=== PATIENT | male | born 1945 | race Caucasian/White ===

== ENCOUNTER 2020-12-16 15:05 | Inpatient (IN) ==
[2020-12-16] MEDS ORDERED: 0.9 % Sodium Chloride 1,000 ML IVC ONE ×2 (15:28→16:59)
[2020-12-16 16:01] LABS: BUN/Creatinine Ratio 9 (6-26); Blood Urea Nitrogen 22 mg/dL (8-23); Calcium 7.9 mg/dL (8.6-10.3); Carbon Dioxide 30 mEq/L (23-29); Chloride 79 mEq/L (98-107); Ethanol < 10 mg/dL (Less than 10); Glucose 96 mg/dL (70-105); Osmolality,Calculated 257 (280-300); Potassium 2.7 mEq/L (3.5-5.1); Sodium 122 mEq/L (136-145); eGFR For African Americans 33 (> 60); eGFR For Non-African Americans 27 (> 60)
[2020-12-16] MEDS ORDERED: Potassium Chloride Elixir 20 MEQ/15 ML UDC PO ONE (16:04)
[2020-12-16 16:06] LABS: Troponin I < 0.03 ng/mL (< 0.04)
[2020-12-16 16:24] LABS: Bilirubin,Urine Small (Negative); Blood,Urine Small (Negative); Clarity,Urine Clear (Clear); Glucose,Urine (UA) Normal (Normal); Ketones,Urine Trace mg/dL (Negative); Leukocyte Esterase,Urine Negative (Negative); Nitrite,Urine Negative (Negative); Protein,Urine Trace mg/dL (Neg-Trace); Urobilinogen,Urine Normal (Normal)
[2020-12-16 16:29] LABS: Color,Urine Dark Yellow (Yellow)
[2020-12-16 16:31] LABS: Renal Epithelial Cells,Urine Few per hpf (None-Few); Squamous Epithelial Cell,Urine None Seen per hpf (None-Few); WBC,Urine 0-3 per hpf (0-3)
[2020-12-16 16:32] LABS: Amorphous Sediment,Urine Many per hpf (None-Few); Hyaline Casts,Urine Few per lpf (None Seen); Mucus,Urine Few per lpf (None-Few)
[2020-12-16 16:35] LABS: Basophils % 0.9 %; Eosinophils # 0.1 K/mcL (0.0-0.6); Eosinophils % 2.9 %; Hematocrit 29.7 % (37.5-50.1); Hemoglobin 11.2 g/dL (12.9-16.9); Immature Granulocytes % 1.3 % (0-4); Lymphocytes # 0.8 K/mcL (0.6-4.6); Lymphocytes % 18.7 %; Mean Corpuscular HGB Conc 37.7 g/dL (31.6-35.5); Mean Corpuscular Hemoglobin 36.6 pg (28.0-33.3); Mean Corpuscular Volume 97.1 fL (83.0-100.0); Mean Platelet Volume 10.4 fL (9.4-12.4); Monocytes # 0.7 K/mcL (0.0-1.3); Monocytes % 16.3 %; Neutrophils # 2.7 K/mcL (1.6-8.9); Platelet Count 142 K/mcL (140-400); Red Blood Count 3.06 M/mcL (4.19-5.50); Red Cell Distribution Width 12.5 % (11.5-14.5); Segmented Neutrophils % 59.9 %; White Blood Count 4.5 K/mcL (4.3-11.1)
[2020-12-16] MEDS ORDERED: MOM Conc 10 ML UD.LIQ PO PRN (17:56)
[2020-12-16] MEDS ORDERED: Ondansetron 4 MG/2 ML VIAL IVP PRN (17:56)
[2020-12-16] MEDS ORDERED: Mag Hydrox/Al Hydrox/Simeth 30 ML UDC PO PRN (17:56)
[2020-12-16] MEDS ORDERED: Acetaminophen 325 MG TABLET PO PRN (17:56)
[2020-12-16] MEDS ORDERED: Melatonin 3 MG TABLET PO PRN (17:56)
[2020-12-16] MEDS ORDERED: Naloxone 0.4 MG/ML INJ IVP PRN (17:56)
[2020-12-16] MEDS ORDERED: *HR* LORazepam 2 MG/ML VIAL IVP PRN (18:02)
[2020-12-16] MEDS ORDERED: 0.9 % Sodium Chloride 250 ML IVC ONE (19:01)
[2020-12-16] MEDS: 0.9 % Sodium Chloride 1,000 ML IVC SCH (19:45)
[2020-12-16 21:21] LABS: Calcium 6.9 mg/dL (8.6-10.3); Potassium 3.2 mEq/L (3.5-5.1)
[2020-12-17] MEDS: 0.9 % Sodium Chloride 1,000 ML IVC SCH ×2 (05:31→15:49)
[2020-12-17 07:31] LABS: Basophils % 0.2 %; Eosinophils % 0.9 %; Hematocrit 26.8 % (37.5-50.1); Hemoglobin 9.7 g/dL (12.9-16.9); Immature Granulocytes % 0.9 % (0-4); Lymphocytes # 0.4 K/mcL (0.6-4.6); Lymphocytes % 9.9 %; Mean Corpuscular HGB Conc 36.2 g/dL (31.6-35.5); Mean Corpuscular Hemoglobin 35.9 pg (28.0-33.3); Mean Corpuscular Volume 99.3 fL (83.0-100.0); Mean Platelet Volume 10.8 fL (9.4-12.4); Monocytes # 0.5 K/mcL (0.0-1.3); Monocytes % 12.7 %; Neutrophils # 3.2 K/mcL (1.6-8.9); Platelet Count 114 K/mcL (140-400); Red Cell Distribution Width 12.7 % (11.5-14.5); Segmented Neutrophils % 75.4 %; White Blood Count 4.2 K/mcL (4.3-11.1)
[2020-12-17 07:55] LABS: Calcium 6.8 mg/dL (8.6-10.3); Potassium 3.4 mEq/L (3.5-5.1)
[2020-12-17 09:00] LABS: Platelet Estimate Slight Decrease (Normal)
[2020-12-17] MEDS: Thiamine (B-1) 100 MG TABLET PO SCH (09:30)
[2020-12-17] MEDS: Folic Acid 1 MG TABLET PO SCH (09:30)
[2020-12-17] MEDS: Vitamin B Complex/Vit C/Vit E 1 EACH TABLET PO SCH (09:30)
[2020-12-17] MEDS: Aspirin 81 MG TAB.CHEW PO SCH (09:30)
[2020-12-17 15:41] LABS: Calcium 6.7 mg/dL (8.6-10.3); Potassium 3.4 mEq/L (3.5-5.1)
[2020-12-18] MEDS: 0.9 % Sodium Chloride 1,000 ML IVC SCH ×3 (00:07→19:36)
[2020-12-18 07:39] LABS: Basophils % 0.4 %; Eosinophils # 0.1 K/mcL (0.0-0.6); Eosinophils % 3.4 %; Hematocrit 24.6 % (37.5-50.1); Hemoglobin 8.8 g/dL (12.9-16.9); Immature Granulocytes % 0.4 % (0-4); Lymphocytes # 0.4 K/mcL (0.6-4.6); Lymphocytes % 17.7 %; Mean Corpuscular HGB Conc 35.8 g/dL (31.6-35.5); Mean Corpuscular Hemoglobin 36.2 pg (28.0-33.3); Mean Corpuscular Volume 101.2 fL (83.0-100.0); Mean Platelet Volume 10.6 fL (9.4-12.4); Monocytes # 0.4 K/mcL (0.0-1.3); Monocytes % 15.6 %; Neutrophils # 1.5 K/mcL (1.6-8.9); Red Blood Count 2.43 M/mcL (4.19-5.50); Red Cell Distribution Width 13.1 % (11.5-14.5); Segmented Neutrophils % 62.5 %; White Blood Count 2.4 K/mcL (4.3-11.1)
[2020-12-18 07:42] LABS: Platelet Count 83 K/mcL (140-400)
[2020-12-18 07:51] LABS: Calcium 6.8 mg/dL (8.6-10.3); Potassium 3.6 mEq/L (3.5-5.1)
[2020-12-18] MEDS: Folic Acid 1 MG TABLET PO SCH (09:08)
[2020-12-18] MEDS: Vitamin B Complex/Vit C/Vit E 1 EACH TABLET PO SCH (09:08)
[2020-12-18] MEDS: Thiamine (B-1) 100 MG TABLET PO SCH (09:08)
[2020-12-18] MEDS: Aspirin 81 MG TAB.CHEW PO SCH (09:08)
[2020-12-18 14:44] LABS: % Iron Saturation 46 % (20-55); Iron 81 mcg/dL (65-175); Transferrin 125 mg/dL (203-362)
[2020-12-18 15:09] LABS: Folate 15.7 ng/mL (3.0-16.0)
[2020-12-19] MEDS: 0.9 % Sodium Chloride 1,000 ML IVC SCH (06:24)
[2020-12-19] MEDS: *HR* Enoxaparin 40 MG/0.4 ML SYRINGE SQ SCH (06:24)
[2020-12-19 06:32] LABS: Basophils % 0.9 %; Eosinophils # 0.1 K/mcL (0.0-0.6); Eosinophils % 4.1 %; Hematocrit 24.7 % (37.5-50.1); Hemoglobin 8.8 g/dL (12.9-16.9); Immature Granulocytes % 0.9 % (0-4); Lymphocytes # 0.4 K/mcL (0.6-4.6); Lymphocytes % 17.3 %; Mean Corpuscular HGB Conc 35.6 g/dL (31.6-35.5); Mean Corpuscular Hemoglobin 36.5 pg (28.0-33.3); Mean Corpuscular Volume 102.5 fL (83.0-100.0); Mean Platelet Volume 10.3 fL (9.4-12.4); Monocytes # 0.3 K/mcL (0.0-1.3); Monocytes % 12.7 %; Neutrophils # 1.4 K/mcL (1.6-8.9); Red Blood Count 2.41 M/mcL (4.19-5.50); Red Cell Distribution Width 13.2 % (11.5-14.5); Segmented Neutrophils % 64.1 %; White Blood Count 2.2 K/mcL (4.3-11.1)
[2020-12-19 06:42] LABS: Platelet Count 85 K/mcL (140-400)
[2020-12-19 06:53] LABS: BUN/Creatinine Ratio 7 (6-26); Blood Urea Nitrogen 9 mg/dL (8-23); Calcium 6.8 mg/dL (8.6-10.3); Carbon Dioxide 25 mEq/L (23-29); Chloride 102 mEq/L (98-107); Glucose 101 mg/dL (70-105); Osmolality,Calculated 277 (280-300); Potassium 3.4 mEq/L (3.5-5.1); Sodium 134 mEq/L (136-145); eGFR For African Americans > 60 (> 60); eGFR For Non-African Americans 55 (> 60)
[2020-12-19 06:56] LABS: Platelet Estimate Decreased (Normal)
[2020-12-19] MEDS: Aspirin 81 MG TAB.CHEW PO SCH (10:06)
[2020-12-19] MEDS: Vitamin B Complex/Vit C/Vit E 1 EACH TABLET PO SCH (10:06)
[2020-12-19] MEDS: Folic Acid 1 MG TABLET PO SCH (10:06)
[2020-12-19] MEDS: Thiamine (B-1) 100 MG TABLET PO SCH (10:06)
[2020-12-20] MEDS: *HR* Enoxaparin 40 MG/0.4 ML SYRINGE SQ SCH (05:08)
[2020-12-20 07:07] VITALS: BP 106/69
[2020-12-20 07:33] LABS: Basophils % 0.9 %; Eosinophils # 0.1 K/mcL (0.0-0.6); Eosinophils % 4.3 %; Hematocrit 24.8 % (37.5-50.1); Hemoglobin 8.7 g/dL (12.9-16.9); Immature Granulocytes % 0.9 % (0-4); Lymphocytes # 0.3 K/mcL (0.6-4.6); Lymphocytes % 14.2 %; Mean Corpuscular HGB Conc 35.1 g/dL (31.6-35.5); Mean Corpuscular Hemoglobin 35.8 pg (28.0-33.3); Mean Corpuscular Volume 102.1 fL (83.0-100.0); Mean Platelet Volume 10.7 fL (9.4-12.4); Monocytes # 0.4 K/mcL (0.0-1.3); Monocytes % 15.5 %; Neutrophils # 1.5 K/mcL (1.6-8.9); Red Blood Count 2.43 M/mcL (4.19-5.50); Red Cell Distribution Width 13.6 % (11.5-14.5); Segmented Neutrophils % 64.2 %; White Blood Count 2.3 K/mcL (4.3-11.1)
[2020-12-20 07:53] LABS: BUN/Creatinine Ratio 5 (6-26); Blood Urea Nitrogen 6 mg/dL (8-23); Calcium 7.1 mg/dL (8.6-10.3); Carbon Dioxide 24 mEq/L (23-29); Chloride 105 mEq/L (98-107); Glucose 106 mg/dL (70-105); Osmolality,Calculated 280 (280-300); Potassium 3.7 mEq/L (3.5-5.1); Sodium 136 mEq/L (136-145); eGFR For African Americans > 60 (> 60); eGFR For Non-African Americans > 60 (> 60)
[2020-12-20 07:59] LABS: Platelet Count 89 K/mcL (140-400)
[2020-12-20] MEDS: Aspirin 81 MG TAB.CHEW PO SCH (09:32)
[2020-12-20] MEDS: Thiamine (B-1) 100 MG TABLET PO SCH (09:32)
[2020-12-20] MEDS: Vitamin B Complex/Vit C/Vit E 1 EACH TABLET PO SCH (09:32)
[2020-12-20] MEDS: Folic Acid 1 MG TABLET PO SCH (09:32)
== END 2020-12-20 16:02 | disposition other institution (70) | DRG 683 ==
LOC: EMEROOPIK 15:05 → INPPIK 15:05
PROVIDERS: ADMIT Family Medicine; ATTEND Family Medicine

== ENCOUNTER 2020-12-20 15:22 | Inpatient (IN) ==
[2020-12-20] MEDS ORDERED: *HR* LORazepam 2 MG/ML VIAL IVP PRN (16:26)
[2020-12-20] MEDS ORDERED: Ondansetron 4 MG/2 ML VIAL IVP PRN (16:26)
[2020-12-20] MEDS ORDERED: Melatonin 3 MG TABLET PO PRN (16:26)
[2020-12-20] MEDS: (Omega-3/Dha/Epa/Fish Oil [Fish Oil 1,000 Mg Softgel]) PO SCH (17:02)
[2020-12-20] MEDS: Multivit/Ca/Min/Fe/FA 1 TAB TABLET PO SCH (17:02)
[2020-12-20] MEDS: Cholecalciferol (D-3) 1,000 UNIT (25MCG) TABLET PO SCH (17:02)
[2020-12-21] MEDS: *HR* Enoxaparin 40 MG/0.4 ML SYRINGE SQ SCH (05:29)
[2020-12-21] MEDS: Thiamine (B-1) 100 MG TABLET PO SCH (08:03)
[2020-12-21] MEDS: Vitamin B Complex/Vit C/Vit E 1 EACH TABLET PO SCH (08:03)
[2020-12-21] MEDS: Aspirin 81 MG TAB.CHEW PO SCH (08:03)
[2020-12-21] MEDS: Folic Acid 1 MG TABLET PO SCH (08:03)
[2020-12-21 08:04] LABS: Basophils % 1.1 %; Eosinophils # 0.1 K/mcL (0.0-0.6); Eosinophils % 3.6 %; Hematocrit 27.7 % (37.5-50.1); Hemoglobin 9.8 g/dL (12.9-16.9); Immature Granulocytes % 0.4 % (0-4); Lymphocytes # 0.5 K/mcL (0.6-4.6); Lymphocytes % 19.2 %; Mean Corpuscular HGB Conc 35.4 g/dL (31.6-35.5); Mean Corpuscular Hemoglobin 36.4 pg (28.0-33.3); Mean Platelet Volume 10.3 fL (9.4-12.4); Monocytes # 0.5 K/mcL (0.0-1.3); Monocytes % 16.7 %; Red Blood Count 2.69 M/mcL (4.19-5.50); Red Cell Distribution Width 13.9 % (11.5-14.5); White Blood Count 2.8 K/mcL (4.3-11.1)
[2020-12-21 08:11] LABS: Neutrophils # 1.7 K/mcL (1.6-8.9); Platelet Count 95 K/mcL (140-400)
[2020-12-21 08:28] LABS: BUN/Creatinine Ratio 6 (6-26); Blood Urea Nitrogen 6 mg/dL (8-23); Calcium 7.8 mg/dL (8.6-10.3); Carbon Dioxide 24 mEq/L (23-29); Chloride 104 mEq/L (98-107); Glucose 101 mg/dL (70-105); Osmolality,Calculated 280 (280-300); Potassium 3.8 mEq/L (3.5-5.1); Sodium 136 mEq/L (136-145); eGFR For African Americans > 60 (> 60); eGFR For Non-African Americans > 60 (> 60)
[2020-12-21 08:34] LABS: Platelet Estimate Decreased (Normal)
[2020-12-21] MEDS: (Omega-3/Dha/Epa/Fish Oil [Fish Oil 1,000 Mg Softgel]) PO SCH (17:32)
[2020-12-21] MEDS: Multivit/Ca/Min/Fe/FA 1 TAB TABLET PO SCH (17:32)
[2020-12-21] MEDS: Cholecalciferol (D-3) 1,000 UNIT (25MCG) TABLET PO SCH (17:32)
[2020-12-22] MEDS: Magnesium Sulfate 2 GM/100 ML PIGGYBACK IVPB SCH ×2 (04:00→09:09)
[2020-12-22] MEDS ORDERED: PIGGYBACK IVPB SCH (05:15)
[2020-12-22] MEDS ORDERED: MAGNESIUM IVPB SCH (05:15)
[2020-12-22] MEDS: *HR* Enoxaparin 40 MG/0.4 ML SYRINGE SQ SCH (05:37)
[2020-12-22] MEDS: Acetaminophen 325 MG TABLET PO PRN ×2 (06:41→21:44)
[2020-12-22 08:08] LABS: Hematocrit 24.5 % (37.5-50.1); Hemoglobin 8.6 g/dL (12.9-16.9); Mean Corpuscular HGB Conc 35.1 g/dL (31.6-35.5); Mean Corpuscular Hemoglobin 36.1 pg (28.0-33.3); Mean Corpuscular Volume 102.9 fL (83.0-100.0); Red Blood Count 2.38 M/mcL (4.19-5.50); White Blood Count 3.4 K/mcL (4.3-11.1)
[2020-12-22 08:12] LABS: Platelet Count 84 K/mcL (140-400)
[2020-12-22 08:21] LABS: Alanine Aminotransferase 36 Units/L (7-52); Albumin 2.2 g/dL (3.5-5.7); Alkaline Phosphatase 67 Units/L (34-104); Aspartate Amino Transferase 41 Units/L (13-39); BUN/Creatinine Ratio 6 (6-26); Blood Urea Nitrogen 6 mg/dL (8-23); Calcium 7.5 mg/dL (8.6-10.3); Carbon Dioxide 23 mEq/L (23-29); Chloride 106 mEq/L (98-107); Globulin 2.1 g/dL (2.4-3.5); Glucose 119 mg/dL (70-105); Osmolality,Calculated 279 (280-300); Potassium 3.9 mEq/L (3.5-5.1); Sodium 135 mEq/L (136-145); Total Protein 4.3 g/dL (6.4-8.9); eGFR For African Americans > 60 (> 60); eGFR For Non-African Americans > 60 (> 60)
[2020-12-22] MEDS: Thiamine (B-1) 100 MG TABLET PO SCH (08:55)
[2020-12-22] MEDS: Aspirin 81 MG TAB.CHEW PO SCH (08:55)
[2020-12-22] MEDS: Vitamin B Complex/Vit C/Vit E 1 EACH TABLET PO SCH (08:55)
[2020-12-22] MEDS: Folic Acid 1 MG TABLET PO SCH (08:55)
[2020-12-22] MEDS: atenoloL 50 MG TABLET PO SCH ×2 (11:45→21:45)
[2020-12-22] MEDS: Cholecalciferol (D-3) 1,000 UNIT (25MCG) TABLET PO SCH (17:20)
[2020-12-22] MEDS: Multivit/Ca/Min/Fe/FA 1 TAB TABLET PO SCH (17:20)
[2020-12-22] MEDS: (Omega-3/Dha/Epa/Fish Oil [Fish Oil 1,000 Mg Softgel]) PO SCH (17:21)
[2020-12-23] MEDS: *HR* Enoxaparin 40 MG/0.4 ML SYRINGE SQ SCH (05:15)
[2020-12-23 08:09] LABS: ABG Base Excess -1 mEq/L (-2 to 3); ABG HCO3 24 mEq/L (21-27); ABG Oxygen Saturation 94 % (95-98); ABG PCO2 40 mmHg (35-45); ABG PO2 73 mmHg (85-104); ABG TCO2 26 mEq/L (20-26)
[2020-12-23 08:12] LABS: Basophils % 0.2 %; Eosinophils % 0.6 %; Hematocrit 31.6 % (37.5-50.1); Hemoglobin 10.8 g/dL (12.9-16.9); Immature Granulocytes % 0.6 % (0-4); Lymphocytes # 0.3 K/mcL (0.6-4.6); Lymphocytes % 6.9 %; Mean Corpuscular HGB Conc 34.2 g/dL (31.6-35.5); Mean Corpuscular Hemoglobin 35.5 pg (28.0-33.3); Mean Corpuscular Volume 103.9 fL (83.0-100.0); Mean Platelet Volume 9.8 fL (9.4-12.4); Monocytes # 0.5 K/mcL (0.0-1.3); Monocytes % 10.3 %; Neutrophils # 3.9 K/mcL (1.6-8.9); Red Blood Count 3.04 M/mcL (4.19-5.50); Red Cell Distribution Width 14.4 % (11.5-14.5); Segmented Neutrophils % 81.4 %; White Blood Count 4.8 K/mcL (4.3-11.1)
[2020-12-23 08:17] LABS: Platelet Count 99 K/mcL (140-400)
[2020-12-23 08:27] LABS: Alanine Aminotransferase 46 Units/L (7-52); Albumin 2.6 g/dL (3.5-5.7); Alkaline Phosphatase 103 Units/L (34-104); Aspartate Amino Transferase 64 Units/L (13-39); BUN/Creatinine Ratio 7 (6-26); Bilirubin,Total 1.5 mg/dL (0.3-1.0); Blood Urea Nitrogen 8 mg/dL (8-23); Calcium 8.3 mg/dL (8.6-10.3); Carbon Dioxide 26 mEq/L (23-29); Chloride 104 mEq/L (98-107); Globulin 2.6 g/dL (2.4-3.5); Glucose 111 mg/dL (70-105); Osmolality,Calculated 283 (280-300); Potassium 4.3 mEq/L (3.5-5.1); Sodium 137 mEq/L (136-145); Total Protein 5.2 g/dL (6.4-8.9); eGFR For African Americans > 60 (> 60); eGFR For Non-African Americans 58 (> 60)
[2020-12-23] MEDS ORDERED: Furosemide 20 MG/2 ML VIAL IVP ONE (08:58)
[2020-12-23] MEDS ORDERED: Piperacillin/Tazobactam 3.375 GM in 0.9 % Sodium Chloride Mini Bag 100 ML IVPB SCH (09:43)
[2020-12-23 11:09] LABS: Adenovirus Not Detected (Not Detect); Bordetella Pertussis Not Detected (Not Detect); Chlamydophila pneumoniae Not Detected (Not Detect); Coronavirus 229E Not Detected (Not Detect); Coronavirus HKU1 Not Detected (Not Detect); Coronavirus NL63 Not Detected (Not Detect); Coronavirus OC43 Not Detected (Not Detect); Human Metapneumovirus Not Detected (Not Detect); Human Rhinovirus/Enterovirus Not Detected (Not Detect); Influenza A Subtype 2009 H1 Not Detected (Not Detect); Influenza B Not Detected (Not Detect); Mycoplasma pneumoniae Not Detected (Not Detect); Parainfluenza Virus 1 Not Detected (Not Detect); Parainfluenza Virus 2 Not Detected (Not Detect); Parainfluenza Virus 3 Not Detected (Not Detect); Parainfluenza Virus 4 Not Detected (Not Detect); Respiratory Syncytial Virus Not Detected (Not Detect); SARS-CoV-2 Not Detected (Not Detect)
[2020-12-23] MEDS ORDERED: 0.9 % Sodium Chloride 500 ML IVC ONE (13:03)
[2020-12-23] MEDS ORDERED: 0.9 % Sodium Chloride 500 ML ONE (13:07)
[2020-12-23] MEDS: atenoloL 50 MG TABLET PO SCH (13:43)
[2020-12-23] MEDS: Folic Acid 1 MG TABLET PO SCH (13:43)
[2020-12-23] MEDS: Thiamine (B-1) 100 MG TABLET PO SCH (13:43)
[2020-12-23] MEDS: Aspirin 81 MG TAB.CHEW PO SCH (13:43)
[2020-12-23] MEDS: Vitamin B Complex/Vit C/Vit E 1 EACH TABLET PO SCH (13:43)
[2020-12-23 13:50] LABS: ABG Base Excess -1 mEq/L (-2 to 3); ABG HCO3 24 mEq/L (21-27); ABG Oxygen Saturation 93 % (95-98); ABG PCO2 38 mmHg (35-45); ABG PH 7.41 pH Units (7.32-7.45); ABG PO2 67 mmHg (85-104); ABG TCO2 25 mEq/L (20-26); Blood Gas Modality BiLevel
[2020-12-23 14:19] VITALS: BP 101/53
[2020-12-23] MEDS ORDERED: Ipratropium/Albuterol Neb 3 ML IH SCH (16:00)
== END 2020-12-23 14:40 | disposition short-term general hospital (02) | DRG 945 ==
LOC: INPPIK 15:47
PROVIDERS: ADMIT Family Medicine; ATTEND Family Medicine